=== PATIENT | female | born 2000 | race American Indian/Alaskan Native ===

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

== ENCOUNTER 2018-04-08 14:13 | Emergency (ER) | payer MEDICAID ==
[2018-04-08 14:21] VITALS: BMI 28.4
[2018-04-08 14:28] VITALS: BP 107/72; PULSE 102; RESP 18; TEMP 97.4; O2SAT 100
[2018-04-08 14:28] LABS: BASO # 0.02 K/mm3 (0.0-2.0); BASO % 0.2 % (0.0-3.0); EOS # 0.1 (0.0-0.7); EOS % 0.5 % (1.5-5.0); HEMOGLOBIN 10.3 g/dL (12.0-16.0); LYMPH # 3.2 (1.2-3.4); LYMPH % 29.3 % (22.0-35.0); MEAN CELL VOLUME 75.6 fl (80.0-105.0); MEAN CORPUSCULAR HEMOGLOBIN 25.9 pg (25.0-35.0); MEAN CORPUSCULAR HGB CONC 34.2 g/dl (31.0-37.0); MEAN PLATELET VOLUME 10.9 fl (7.0-11.0); MONO # 0.7 (0.1-0.6); MONO % 6.5 % (1.0-6.0); RBC 3.98 10^6/uL (3.5-6.1); RED CELL DISTRIBUTION WIDTH 13.9 % (11.5-14.5); WHITE BLOOD COUNT 10.9 10^3/uL (4.5-11.0)
[2018-04-08] MEDS ORDERED: Magnesium Sulfate 2 gm/50 ml 2 GM/50 ML BAG IVPB ONE (14:31)
[2018-04-08] MEDS ORDERED: Sodium Chloride 0.9% 1,000 ML IV STA (14:36)
--- NOTE | 2018-04-08 14:41 | ED PDOC ---
Arrival/HPI - General Time Seen by Provider: 04/08/18 14:17 Historian: Patient - History of Present Illness Narrative History of Present Illness (Text): 04/08/18 14:21 Patient is a 18 year old female, 34 weeks , , with history of elective , presents to the ED accompanied by mother for evaluation of AMS s/p mother came running to the ER after an episode of unresponsiveness prior to arrival. Mother states patient was complaining of dizziness in the car followed by drooling and later became unresponsive. Patient was noted to have urinary incontinence during the episode however did not demonstrate any post- ictal symptoms. Patient currently presents no medical complaints. Patient states she saw some white spots prior to episode but denies any current vision changes. Patient reports last evaluation by [facility] CRIMPER at a clinic in [place] 1 month ago with no complications. Reports good movement and no vaginal discharge or bleeding. denies abdominal cramping. Patient denies any fever, chills, nausea, vomiting, diarrhea, abdominal pain, chest pain, SOB, lower extremity swelling, headache, current dizziness, neck pain or any other complaints. Patient denies any history of seizure or any similar episode in the past. Patient denies any family history of seizure in her maternal side. Patient denies any history of alcohol use or any history of benzodiazepine use. Denies hx of head trauma 04/08/18 17:06 Time/Duration: Prior to Arrival Symptom Onset: Sudden Symptom Course: Improving Activities at Onset: Light Context: Passenger Past Medical History - Provider Review Nursing Documentation Reviewed: Yes - Infectious Disease Hx of Infectious Diseases: None - Reproductive Currently : Yes - Cardiac Hx Cardiac Disorders: No - Pulmonary Hx Respiratory Disorders: No - Neurological Hx Neurological Disorder: No - HEENT Hx HEENT Disorder: No - Endocrine/Metabolic Hx Endocrine Disorders: No - Hematological/Oncological Hx Blood Disorders: No - Integumentary Hx Dermatological Disorder: No - Musculoskeletal/Rheumatological Hx Musculoskeletal Disorders: No - Gastrointestinal Hx Gastrointestinal Disorders: No - Genitourinary/Gynecological Hx Genitourinary Disorders: No - Psychiatric Hx Psychophysiologic Disorder: No Hx Substance Use: No - Surgical History Hx Orthopedic Surgery: Yes (fracture right arm) - Anesthesia Hx Anesthesia: Yes Family/Social History - Physician Review Nursing Documentation Reviewed: Yes Family/Social History: No Known Family HX Smoking Status: Current Some Days Smoker Hx Alcohol Use: Yes Hx Substance Use: No Allergies/Home Meds Allergies/Adverse Reactions: Allergies No Known Allergies Allergy (Verified 09/12/17 00:23) Review of Systems - Review of Systems Constitutional: absent: Fevers Eyes: absent: Vision Changes Respiratory: absent: SOB, Cough Cardiovascular: absent: Chest Pain, BLACKMAN Gastrointestinal: absent: Abdominal Pain, Diarrhea, Nausea, Vomiting Genitourinary Female: absent: Dysuria, Urine Output Changes Musculoskeletal: absent: Back Pain, Neck Pain Skin: absent: Rash Neurological: Dizziness, Seizure. absent: Headache Psychiatric: absent: Anxiety Physical Exam Vital Signs Reviewed: Yes Vital Signs Temp Pulse Resp BP Pulse Ox 04/08/18 14:27 97.4 F L 102 H 18 107/72 100 Temperature: Afebrile Blood Pressure: Normal Pulse: Tachycardic Respiratory Rate: Normal Appearance: Positive for: Well-Appearing, Non-Toxic, Comfortable Pain Distress: None Mental Status: Positive for: Alert and Oriented X 3 - Systems Exam Head: Present: Atraumatic, Normocephalic Pupils: Present: PERRL Extroacular Muscles: Present: EOMI Conjunctiva: Present: Normal Mouth: Present: Moist Mucous Membranes Neck: Present: Normal Range of Motion Respiratory/Chest: Present: Clear to Auscultation, Good Air Exchange. No: Respiratory Distress, Accessory Muscle Use Cardiovascular: Present: Regular Rate and Rhythm, Normal S1, S2. No: Murmurs Abdomen: Present: Other (Gravid Abdomen). No: Tenderness, Distention, Peritoneal Signs Back: Present: Normal Inspection Upper Extremity: Present: Normal Inspection. No: Cyanosis, Edema Lower Extremity: Present: Normal Inspection. No: Edema Neurological: Present: GCS=15, CN II-XII Intact, Speech Normal Skin: Present: Warm, Dry, Normal Color. No: Rashes Psychiatric: Present: Alert, Oriented x 3, Normal Insight, Normal Concentration Medical Decision Making ED Course and Treatment: 04/08/18 14:42 Impression: 18 year old female presents to the ED for evaluation of AMS s/p possible syncope/seizure episode. Plan: -- Labs -- EKG -- CXR -- Magnesium -- UA Progress Notes: 04/08/18 14:59 Patient is refusing CXR. 04/08/18 15:15 Bedside u/s confirming IUP with FHR. Magnesium started due to concern for eclampsia. Patient neurologically intact. Patient denying chest pain or shortness of breath. Needs emergent transfer due to lack of L&D services at [place]. Spoke to Dr. Kunz, branch mechanic who accepted transfer directly to L&D at [place] 04/08/18 17:06 - RAD Interpretation Radiology Orders: 04/08/18 14:22 CHEST PORTABLE [RAD] Stat - Medication Orders Current Medication Orders: Magnesium Sulfate (Magnesium Sulfate 2 Gm/50 Ml Water) 2 gm in 50 mls @ 50 mls/hr IVPB ONCE ONE Stop: 04/08/18 15:30 - Scribe Statement The provider has reviewed the documentation as recorded by the Scribe Geetha Reyes. All medical record entries made by the Scribe were at my direction and personally dictated by me. I have reviewed the chart and agree that the record accurately reflects my personal performance of the history, physical exam, medical decision making, and the department course for this patient. I have also personally directed, reviewed, and agree with the discharge instructions and disposition. Disposition/Present on Arrival - Present on Arrival Any Indicators Present on Arrival: No History of DVT/PE: No History of Uncontrolled Diabetes: No Urinary Catheter: No History Surgical Site Infection Following: None - Disposition Have Diagnosis and Disposition been Completed?: Yes Diagnosis: , Seizure Disposition: Transfer [facility] Disposition Time: 15:19 Patient Plan: Transfer To ([place]) Patient Problems: Current Active Problems Problem Status Onset Acute Seizure Acute Condition: FAIR Referrals: PCP,NO [Primary Care Provider] - Follow up with primary
[2018-04-08 14:42] LABS: ALB/GLOB RATIO 1.1 (1.1-1.8); ALBUMIN 3.4 g/dL (3.0-4.8); ALT/SGPT 34 U/L (7-56); AST/SGOT 32 U/L (14-36); BLOOD UREA NITROGEN 6 mg/dL (7-21); CALCIUM 8.8 mg/dL (8.4-10.5); GFR NON-AFRICAN AMERICAN > 60
[2018-04-08 14:44] LABS: ACETAMINOPHEN < 10.0 ug/ml (10.0-20.0); SALICYLATE < 1 mg/dL (2.0-20.0)
[2018-04-08 14:59] LABS: INR 1.02; PARTIAL THROMBOPLASTIN TIME 22.9 Seconds (26.9-38.3); PROTHROMBIN TIME 11.3 SECONDS (9.4-12.5)
[2018-04-08 16:02] LABS: URINE BILIRUBIN SMALL (NEGATIVE); URINE BLOOD NEGATIVE (NEGATIVE); URINE GLUCOSE (UA) NEGATIVE (NEGATIVE); URINE LEUKOCYTE ESTERASE SMALL Leu/uL (NEGATIVE); URINE PROTEIN 100 mg/dL (<30 mg/dL)
[2018-04-08 16:03] LABS: URINE APPEARANCE CLOUDY (CLEAR); URINE COLOR AMBER (YELLOW)
[2018-04-08 16:06] LABS: BARBITURATES, UR NEGATIVE (NEGATIVE); BENZODIAZEPINES, UR NEGATIVE (NEGATIVE); OPIATES, UR NEGATIVE (NEGATIVE); PHENCYCLIDINE, UR NEGATIVE (NEGATIVE)
[2018-04-08 16:27] LABS: URINE AMORPHOUS SEDIMENT SMALL /hpf; URINE BACTERIA TRACE /hpf
--- NOTE | 2018-04-09 08:08 | CARD ---
APPROVED REPORT Date of service: 04/08/2018 EKG Measurement Heart [id number] <Conclusion> Sinus tachycardia Otherwise normal ECG
== END 2018-04-08 15:45 | disposition short-term general hospital (02) ==
LOC: ED 14:13
DX: O26.893 Other specified pregnancy related conditions, third trimester (principal); Z3A.34 34 weeks gestation of pregnancy; R56.9 Unspecified convulsions
CPT/HCPCS: 80053; 80320; 80324; 80329; 80345; 80346; 80349; 80353; 80358; 80361; 81001; 82948; 83735; 83992; 84100; 85025; 85610; 85730; 86850; 86900; 87086; 93005; 99285; J7030

== ENCOUNTER 2018-05-10 21:22 | Emergency (ER) | payer MEDICAID ==
[2018-05-10 21:22] VITALS: BMI 28.4
[2018-05-10 21:56] VITALS: PULSE 85; RESP 17; TEMP 97.8; O2SAT 97
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
[2018-05-10 22:34] VITALS: BP 123/80
== END 2018-05-10 22:30 | disposition home or self-care (01) ==
LOC: ED 21:22
DX: Z77.098 Contact with and (suspected) exposure to other hazardous, chiefly nonmedicinal, chemicals (principal); O26.93 Pregnancy related conditions, unspecified, third trimester; Z3A.00 Weeks of gestation of pregnancy not specified